=== PATIENT | male | born 1965 | race Caucasian/White ===

== ENCOUNTER 2022-01-06 02:45 | Emergency (ER) | payer SELFPAY ==
[~2022-01-06] VITALS: Ht 170.2 cm; Wt 92.1 kg
--- NOTE | 2022-01-06 02:45 | NUR ---
PT BIB [facility], PREBOOK. TAKEN TO CHAIR
[2022-01-06 02:50] VITALS: BP 138/72
--- NOTE | 2022-01-06 02:54 | NUR ---
Dr. Garcia examining patient.
[2022-01-06 03:18] VITALS: BP 138/72
--- NOTE | 2022-01-06 03:18 | NUR ---
Patient D/C to custody.
== END 2022-01-06 03:18 ==
LOC: MED 02:45
DX: F10.129 Alcohol abuse with intoxication, unspecified (principal); Y90.9 Presence of alcohol in blood, level not specified; V49.88XA Car occupant (driver) (passenger) injured in other specified transport accidents, initial encounter; Y93.89 Activity, other specified; Y92.89 Other specified places as the place of occurrence of the external cause; Y99.8 Other external cause status
CPT/HCPCS: 99283